=== PATIENT | female | born 1960 | race Caucasian/White ===

== ENCOUNTER 2016-11-22 04:48 | Inpatient (IN) | payer OTHER ==
[~2016-11-22] VITALS: Ht 175.3 cm; Wt 121.0 kg
[~2016-11-22 04:48] MED LIST: ACETAMINOPHEN325 M1 GT; ALDACTONE25 MG GT; ATIVAN0.5 MG GT; ATROVENT 00.5 MG/2.5 IH; BUDESONIDE0.5 MG/2 M IH; CALCIDOL8000 UNIT/ GT; CALCIUM ACETAT667 MG GT; CATHFLO ACT2 MG/2 ML INTRA-CATH; CELEXA20 MG GT; CHLORHEXIDINE473 ML PO; COREG3.125 M1 GT; DEXTROSE 50%50 ML IV; DICYCLOMINE HCL10 MG GT; DILAUDID2 MG GT; DUONEB 2.5-0.5 M3 ML AEROSOL; HECTOROL4 MCG/2 M1 IV; HEPARIN IV; HEPARIN SO1000 UNIT1 IV; HEPARIN SO5000 UNITS SC; K-SOL20 MEQ/15 GT; LANTUS 3 M100 UNITS1 SC; LASIX40 MG GT; LEVAQUIN750 MG GT; LEVAQUIN750 MG PO; LEVEMIR100 UNIT/2 SC; LEVO-T125 MCG GT; LEVO-T137 MCG GT; METOLAZONE2.5 MG GT; MYLICON,MYLANTA80 MG GT; NEPHRO-VITE,1 TABLET GT; NORVASC5 MG GT; NOVOLOG PE100 UNITS/ SC; ONDANSETRON4 MG/2 ML IV; PROCRIT10000 UNI1 SC; PROMETHAZINE HC25 M1 GT; PROTONIX IV40 MG IV; PROVENTIL,2.5 MG/3 M IH; SALINE FLUSH 5 M5 ML IV; SENNA8.8 MG/5 M GT; SILVASORB1.5 OZ TP; TYLENOL REGULA325 MG GT; TYLENOL650 MG PR; Tears Naturale II,Ar BOTH EYES; VANCOMYCIN HCL1 GM IV; ZOCOR20 MG GT
[2016-11-22 05:16] LABS: CREATININE 1.4 mg/dL (0.6-1.3); POTASSIUM 4.6 mEq/L (3.7-5.4)
[2016-11-22 05:46] LABS: CHLORIDE 99 mEq/L (99-109); POTASSIUM 4.7 mEq/L (3.7-5.4); SODIUM 135 mEq/L (136-147)
[2016-11-22 05:47] LABS: HEMATOCRIT 36.1 % (36.0-46.0); MCH 27.4 PG (29.0-34.0); MCHC 30.2 G/DL (30.0-36.0); MCV 90.7 FL (83-99); MEAN PLAT.VOLUME 10.3 uM^3 (9.5-12.4); PLATELET COUNT 265 K/uL (156-360); RBC DIS.WIDTH-CV 18.3 % (11.8-14.6); RBC DIS.WIDTH-SD 58.8 % (39-53); RED BLOOD COUNT 3.98 M/uL (3.80-5.20); WHITE BLOOD COUNT 9.9 K/uL (4.1-10.2)
[2016-11-22 05:48] LABS: GLUCOSE 252 mg/dL (70-99)
[2016-11-22 05:49] LABS: ANION GAP 11 MEQ/L (2-14)
[2016-11-22 05:52] LABS: GFR ESTIMATE (CALCULATED) 38 mL/min/
[2016-11-22 05:53] LABS: UREA NITROGEN (BUN) 52 mg/dL (9-23)
[2016-11-22] MEDS ORDERED: VITAMIN D2000 UNI1 PO (08:17)
[2016-11-22] MEDS ORDERED: LEVEMIR FL100 UNIT/1 SC (08:19)
[2016-11-22] MEDS ORDERED: WELLBUTRIN100 MG GT (08:19)
[2016-11-22] MEDS ORDERED: VITAMIN D-32000 UNI2 GT (08:19)
[2016-11-22] MEDS ORDERED: BENADRYL25 MG GT (08:20)
[2016-11-22] MEDS ORDERED: DULCOLAX5 MG GT (08:21)
[2016-11-22] MEDS ORDERED: MAGOX 400400 MG GT (08:21)
[2016-11-22] MEDS ORDERED: CALCIUM ACETAT667 MG GT (08:22)
[2016-11-22] MEDS ORDERED: NOVOLOG PE100 UNITS/ SC (08:22)
[2016-11-22] MEDS ORDERED: PERCOCET 5/31 TABLET PO ×2 (08:23→08:24)
[2016-11-22] MEDS ORDERED: LASIX20 MG GT (08:23)
[2016-11-22] MEDS ORDERED: KLONOPIN1 MG GT (08:24)
[2016-11-22] MEDS ORDERED: ZOFRAN4 MG GT (08:25)
[2016-11-22] MEDS ORDERED: COUGH SYRU100 MG/5 M GT (08:25)
[2016-11-22] MEDS ORDERED: ACETAMINOPHEN325 M1 GT (08:26)
[2016-11-22] MEDS ORDERED: TEARS NATURALE1 EACH BOTH EYES (08:27)
[2016-11-22] MEDS ORDERED: PROTONIX40 M1 GT (08:27)
[2016-11-22] MEDS ORDERED: FULL SPECTRUM0.8 MG GT (08:28)
[2016-11-22] MEDS ORDERED: COREG12.5 M1 GT (08:28)
[2016-11-22] MEDS ORDERED: ZOCOR20 MG GT (08:29)
[2016-11-22] MEDS ORDERED: DICYCLOMIN10 MG/5 ML GT (08:29)
[2016-11-22] MEDS ORDERED: GLUCERNA237 ML GT (08:30)
[2016-11-22] MEDS ORDERED: HEPARIN SO5000 UNITS SC (08:30)
[2016-11-22] MEDS ORDERED: NYSTOP60 GM TP (08:31)
[2016-11-22] MEDS ORDERED: HYDROPHOR228 GM TP (08:31)
[2016-11-22] MEDS ORDERED: PULMICORT0.5 MG/21 IH (08:32)
[2016-11-22] MEDS ORDERED: JUVEN PACKET1 EACH GT (08:33)
[2016-11-22] MEDS ORDERED: DUONEB 2.5-0.5 M3 ML AEROSOL (08:34)
[2016-11-22] MEDS ORDERED: PERIDEX1 ML MM (08:35)
[2016-11-22 11:00] VITALS: BP 116/76
[2016-11-22 12:00] VITALS: BP 97/57
[2016-11-22 12:22] VITALS: BP 116/76
[2016-11-22 12:24] LABS: METH RESISTANT S AUREUS PCR POSITIVE (NEGATIVE); PROBE CHECK PASS
[2016-11-22 13:30] LABS: POINT-OF-CARE METER ID UU13113731
[2016-11-22 14:47] LABS: ADD MIUA? YES; BILIRUBIN NEGATIVE; BLOOD MODERATE; COLOR YELLOW ((YELLOW)); GLUCOSE (STRIP) NEGATIVE; KETONES NEGATIVE; LEUKOCYTES MODERATE; NITRITE NEGATIVE; PROTEIN (STRIP) 30; SPECIFIC GRAVITY 1.027 (1.000-1.030); UROBILINOGEN 0.2 MG/DL (0.2-1.0)
[2016-11-22 15:07] LABS: EPITHELIAL CELLS 1+; MUCUS 2+
[2016-11-22 15:08] LABS: BACTERIA 1+; CASTS NONE SEEN /LPF; CRYSTALS NONE SEEN
[2016-11-22 16:00] VITALS: BP 136/53
[2016-11-22 16:12] LABS: POINT-OF-CARE METER ID UU13113731
[2016-11-22 16:35] LABS: CANDIDA DNA PROBE NEGATIVE; GARDNERELLA DNA PROBE NEGATIVE; INTERNAL CONTROL VALID? YES
[2016-11-22 19:12] LABS: HEMATOCRIT 35.1 % (36.0-46.0); MCV 90.5 FL (83-99)
[2016-11-22 20:00] VITALS: BP 95/48
[2016-11-22 22:00] VITALS: BP 96/52
[2016-11-22 22:11] LABS: POINT-OF-CARE METER ID UU14174217
[2016-11-22 22:47] LABS: INTERNAL CONTROL VALID? YES
[2016-11-22 23:15] LABS: C DIFF TOXIN POSITIVE (NEGATIVE)
[2016-11-22 23:16] LABS: PROBE CHECK PASS
[2016-11-23] VITALS (9 sets, daily range): BP systolic 110–136; BP diastolic 46–60
[2016-11-23 00:22] LABS: MAGNESIUM 1.7 mg/dL (1.3-2.7)
[2016-11-23 05:32] LABS: MCH 26.9 PG (29.0-34.0); MCHC 29.4 G/DL (30.0-36.0); MCV 91.4 FL (83-99); MEAN PLAT.VOLUME 10.3 uM^3 (9.5-12.4); PLATELET COUNT 217 K/uL (156-360); RBC DIS.WIDTH-CV 18.4 % (11.8-14.6); RBC DIS.WIDTH-SD 60.4 % (39-53); RED BLOOD COUNT 3.72 M/uL (3.80-5.20); WHITE BLOOD COUNT 9.5 K/uL (4.1-10.2)
[2016-11-23 05:57] LABS: ANION GAP 5 MEQ/L (2-14); CHLORIDE 103 MEQ/L (99-109); GFR ESTIMATE (CALCULATED) 54 mL/min/; SAMPLE HEMOLYSIS CHECK 0; SAMPLE ICTERIC CHECK 0; SAMPLE LIPEMIA CHECK 0; SODIUM 139 MEQ/L (136-147)
[2016-11-23 06:13] LABS: GLUCOSE 79 mg/dL (70-99); UREA NITROGEN (BUN) 23 mg/dL (9-23)
[2016-11-23 06:15] LABS: EOSINOPHIL (%) 4.5 % (0-5); EOSINOPHIL COUNT 0.4 K/uL (0-0.3); IMMATURE GRANULOCYTE (%) 0.4 % (0.0-0.7); LYMPHOCYTE COUNT 1.9 K/uL (1.0-2.8); MONOCYTE (%) 4.5 % (3-12); MONOCYTE COUNT 0.4 K/uL (0-0.8); NEUTROPHIL (%) 70.8 % (45-76); NEUTROPHIL COUNT 6.7 K/uL (1.8-6.4)
[2016-11-23 10:17] LABS: POINT-OF-CARE METER ID UU14174217
[2016-11-23 10:50] LABS: HBSG INDEX 0.13
[2016-11-23 12:10] LABS: POINT-OF-CARE METER ID UU13113803
[2016-11-23 17:46] LABS: POINT-OF-CARE METER ID UU14174217; POINT-OF-CARE USER ID 606021424
[2016-11-24] VITALS (12 sets, daily range): BP systolic 103–130; BP diastolic 46–69
[2016-11-24 05:59] LABS: HEMATOCRIT 32.3 % (36.0-46.0); MCH 26.7 PG (29.0-34.0); MCHC 29.1 G/DL (30.0-36.0); MCV 91.8 FL (83-99); MEAN PLAT.VOLUME 10.3 uM^3 (9.5-12.4); PLATELET COUNT 204 K/uL (156-360); RBC DIS.WIDTH-CV 18.6 % (11.8-14.6); RBC DIS.WIDTH-SD 61.5 % (39-53); RED BLOOD COUNT 3.52 M/uL (3.80-5.20); WHITE BLOOD COUNT 8.8 K/uL (4.1-10.2)
[2016-11-24 06:17] LABS: EOSINOPHIL (%) 4.9 % (0-5); EOSINOPHIL COUNT 0.4 K/uL (0-0.3); IMMATURE GRANULOCYTE (%) 0.3 % (0.0-0.7); MONOCYTE (%) 6.7 % (3-12); MONOCYTE COUNT 0.6 K/uL (0-0.8); NEUTROPHIL COUNT 5.7 K/uL (1.8-6.4)
[2016-11-24 06:23] LABS: ANION GAP 8 MEQ/L (2-14); CHLORIDE 103 MEQ/L (99-109); GFR ESTIMATE (CALCULATED) 49 mL/min/; GLUCOSE 55 mg/dL (70-99); POTASSIUM 3.8 MEQ/L (3.7-5.4); SAMPLE HEMOLYSIS CHECK 0; SAMPLE ICTERIC CHECK 0; SAMPLE LIPEMIA CHECK 0; SODIUM 138 MEQ/L (136-147); UREA NITROGEN (BUN) 27 mg/dL (9-23)
[2016-11-24 08:38] LABS: POINT-OF-CARE METER ID UU13113731
[2016-11-24 12:33] LABS: POINT-OF-CARE METER ID UU13113731
[2016-11-24 15:26] LABS: MAGNESIUM 1.7 mg/dl (1.3-2.7)
[2016-11-24 18:44] LABS: POINT-OF-CARE METER ID UU13113731
[2016-11-24 18:52] LABS: ADD MIUA? YES; BILIRUBIN NEGATIVE; BLOOD NEGATIVE; COLOR YELLOW ((YELLOW)); GLUCOSE (STRIP) NEGATIVE; KETONES NEGATIVE; LEUKOCYTES NEGATIVE; NITRITE NEGATIVE; PROTEIN (STRIP) NEGATIVE; SPECIFIC GRAVITY 1.023 (1.000-1.030); UROBILINOGEN 0.2 MG/DL (0.2-1.0)
[2016-11-24 19:37] LABS: RED BLOOD CELLS 0-5 /HPF (0-5)
[2016-11-24 19:38] LABS: BACTERIA 1+; CASTS NONE SEEN /LPF; CRYSTALS NONE SEEN; EPITHELIAL CELLS 4+; MUCUS NONE SEEN; UCUL ADDED? NO; WHITE BLOOD CELLS 0-5 /HPF (0-5)
[2016-11-24 23:13] LABS: POINT-OF-CARE METER ID UU13113803
[2016-11-25] VITALS (8 sets, daily range): BP systolic 99–154; BP diastolic 52–71
[2016-11-25 06:56] LABS: ANION GAP 8 MEQ/L (2-14); CHLORIDE 102 MEQ/L (99-109); GFR ESTIMATE (CALCULATED) 45 mL/min/; MAGNESIUM 1.6 mg/dl (1.3-2.7); POTASSIUM 4.2 MEQ/L (3.7-5.4); SAMPLE HEMOLYSIS CHECK 0; SAMPLE ICTERIC CHECK 0; SAMPLE LIPEMIA CHECK 0; SODIUM 136 MEQ/L (136-147); UREA NITROGEN (BUN) 35 mg/dL (9-23)
[2016-11-25 06:59] LABS: GLUCOSE 111 mg/dL (70-99)
[2016-11-25 09:32] LABS: POINT-OF-CARE METER ID UU13113748
[2016-11-25] MEDS ORDERED: BACTRIM,SEPTRA S1 ML GT (09:54)
[2016-11-25] MEDS ORDERED: VANCOMYCIN125 MG/2.5 PO (09:56)
[2016-11-25 11:41] LABS: POINT-OF-CARE METER ID UU13113748; POINT-OF-CARE USER ID 606021424
[2016-11-25 17:50] LABS: POINT-OF-CARE METER ID UU14162636
[2016-11-25 22:40] LABS: POINT-OF-CARE METER ID UU14162636
[2016-11-26] VITALS: BP 140/52
[2016-11-26 04:00] VITALS: BP 159/66
[2016-11-26 06:55] LABS: ANION GAP 11 MEQ/L (2-14); CHLORIDE 104 MEQ/L (99-109); GFR ESTIMATE (CALCULATED) 45 mL/min/; GLUCOSE 162 mg/dL (70-99); POTASSIUM 4.5 MEQ/L (3.7-5.4); SAMPLE HEMOLYSIS CHECK 0; SAMPLE ICTERIC CHECK 0; SAMPLE LIPEMIA CHECK 0; SODIUM 138 MEQ/L (136-147); UREA NITROGEN (BUN) 37 mg/dL (9-23)
[2016-11-26 08:30] VITALS: BP 127/60
[2016-11-26 12:00] VITALS: BP 80/56
[2016-11-26 16:30] VITALS: BP 142/69
[2016-11-26 20:00] VITALS: BP 169/68
[2016-11-27] VITALS (7 sets, daily range): BP systolic 0–136; BP diastolic 0–64
[2016-11-27 06:19] LABS: HEMATOCRIT 32.3 % (36.0-46.0); MCH 27.5 PG (29.0-34.0); MCV 91.5 FL (83-99); RBC DIS.WIDTH-CV 17.6 % (11.8-14.6); RBC DIS.WIDTH-SD 59.3 % (39-53); RED BLOOD COUNT 3.53 M/uL (3.80-5.20); WHITE BLOOD COUNT 9.3 K/uL (4.1-10.2)
[2016-11-27 06:37] LABS: BASOPHIL COUNT 0.1 K/uL (0-0.1); EOSINOPHIL (%) 4.4 % (0-5); EOSINOPHIL COUNT 0.4 K/uL (0-0.3); IMMATURE GRANULOCYTE (%) 0.5 % (0.0-0.7); IMMATURE GRANULOCYTE COUNT 0.1 K/uL; LYMPHOCYTE COUNT 2.3 K/uL (1.0-2.8); MEAN PLAT.VOLUME 10.5 uM^3 (9.5-12.4); MONOCYTE (%) 6.7 % (3-12); MONOCYTE COUNT 0.6 K/uL (0-0.8); NEUTROPHIL (%) 62.6 % (45-76); NEUTROPHIL COUNT 5.8 K/uL (1.8-6.4)
[2016-11-27 06:42] LABS: ANION GAP 9 MEQ/L (2-14); CHLORIDE 105 MEQ/L (99-109); GFR ESTIMATE (CALCULATED) 45 mL/min/; GLUCOSE 128 mg/dL (70-99); POTASSIUM 4.2 MEQ/L (3.7-5.4); SAMPLE HEMOLYSIS CHECK 0; SAMPLE ICTERIC CHECK 0; SAMPLE LIPEMIA CHECK 0; SODIUM 140 MEQ/L (136-147); UREA NITROGEN (BUN) 41 mg/dL (9-23)
[2016-11-27 06:43] LABS: PLATELET COUNT 278 K/uL (156-360)
[2016-11-27 08:13] LABS: ALKALINE PHOSPHATASE 133 IU/L (3-129); DIRECT BILIRUBIN 0.1 mg/dL (0.0-0.3); MAGNESIUM 1.7 mg/dl (1.3-2.7); TOTAL BILIRUBIN 0.4 MG/DL (0.0-1.0)
[2016-11-27] MEDS ORDERED: BUMETANIDE1 MG PO (12:26)
[2016-11-27 21:37] LABS: POINT-OF-CARE METER ID UU14174217; POINT-OF-CARE USER ID PHATLC
[2016-11-27 23:37] LABS: UR CREATININE CONCENTRATION 71.3 MG/DL
[2016-11-28] VITALS (7 sets, daily range): BP systolic 115–127; BP diastolic 56–82
[2016-11-28 06:40] LABS: ANION GAP 7 MEQ/L (2-14); CHLORIDE 104 MEQ/L (99-109); GFR ESTIMATE (CALCULATED) 45 mL/min/; GLUCOSE 169 mg/dL (70-99); POTASSIUM 4.3 MEQ/L (3.7-5.4); SAMPLE HEMOLYSIS CHECK 0; SAMPLE ICTERIC CHECK 0; SAMPLE LIPEMIA CHECK 0; SODIUM 138 MEQ/L (136-147); UREA NITROGEN (BUN) 44 mg/dL (9-23)
[2016-11-28 12:00] LABS: POINT-OF-CARE METER ID UU14162636
[2016-11-28 17:51] LABS: POINT-OF-CARE METER ID UU14162636
[2016-11-28 23:13] LABS: POINT-OF-CARE METER ID UU13113748; POINT-OF-CARE USER ID PHATLC
[2016-11-29] VITALS (7 sets, daily range): BP systolic 91–147; BP diastolic 51–72
[2016-11-29 05:44] LABS: POINT-OF-CARE METER ID UU14162636; POINT-OF-CARE USER ID PHATLC
[2016-11-29 08:32] LABS: POINT-OF-CARE METER ID UU13113748
[2016-11-29 11:40] LABS: POINT-OF-CARE METER ID UU13113748
[2016-11-29 16:58] LABS: POINT-OF-CARE METER ID UU13113748
[2016-11-29 22:54] LABS: POINT-OF-CARE METER ID UU13113748; POINT-OF-CARE USER ID PHATLC
[2016-11-30] VITALS: BP 122/82
[2016-11-30 04:00] VITALS: BP 175/71
[2016-11-30 05:50] LABS: HEMATOCRIT 32.9 % (36.0-46.0); MCH 27.8 PG (29.0-34.0); MCHC 30.1 G/DL (30.0-36.0); MCV 92.4 FL (83-99); RBC DIS.WIDTH-CV 17.2 % (11.8-14.6); RBC DIS.WIDTH-SD 58.1 % (39-53); RED BLOOD COUNT 3.56 M/uL (3.80-5.20); WHITE BLOOD COUNT 9.3 K/uL (4.1-10.2)
[2016-11-30 06:41] LABS: ALKALINE PHOSPHATASE 129 IU/L (3-129); ANION GAP 8 MEQ/L (2-14); CHLORIDE 100 MEQ/L (99-109); GFR ESTIMATE (CALCULATED) 45 mL/min/; GLUCOSE 210 mg/dL (70-99); POTASSIUM 4.7 MEQ/L (3.7-5.4); SAMPLE HEMOLYSIS CHECK 0; SAMPLE ICTERIC CHECK 0; SAMPLE LIPEMIA CHECK 0; SODIUM 137 MEQ/L (136-147); TOTAL BILIRUBIN 0.4 MG/DL (0.0-1.0); UREA NITROGEN (BUN) 49 mg/dL (9-23)
[2016-11-30 06:45] LABS: BASOPHIL COUNT 0.1 K/uL (0-0.1); EOSINOPHIL (%) 4.1 % (0-5); EOSINOPHIL COUNT 0.4 K/uL (0-0.3); IMMATURE GRANULOCYTE (%) 0.5 % (0.0-0.7); IMMATURE GRANULOCYTE COUNT 0.1 K/uL; LYMPHOCYTE COUNT 2.5 K/uL (1.0-2.8); MEAN PLAT.VOLUME 10.2 uM^3 (9.5-12.4); MONOCYTE (%) 7.8 % (3-12); MONOCYTE COUNT 0.7 K/uL (0-0.8); NEUTROPHIL (%) 60.8 % (45-76); NEUTROPHIL COUNT 5.7 K/uL (1.8-6.4); PLATELET COUNT 391 K/uL (156-360)
[2016-11-30 08:00] VITALS: BP 126/68
[2016-11-30 09:05] LABS: POINT-OF-CARE METER ID UU14174217
[2016-11-30 12:00] VITALS: BP 118/36
[2016-11-30 12:00] LABS: POINT-OF-CARE METER ID UU13113803
[2016-11-30 16:00] VITALS: BP 118/61
[2016-11-30 18:10] LABS: POINT-OF-CARE METER ID UU14174217
[2016-11-30 20:00] VITALS: BP 132/56
[2016-11-30 21:29] LABS: POINT-OF-CARE METER ID UU14174217
[2016-12-01] VITALS (10 sets, daily range): BP systolic 89–149; BP diastolic 46–75
[2016-12-01 09:03] LABS: POINT-OF-CARE METER ID UU13113731
[2016-12-01 12:45] LABS: HEMATOCRIT 32.7 % (36.0-46.0); MCH 27.8 PG (29.0-34.0); MCHC 30.3 G/DL (30.0-36.0); MCV 91.9 FL (83-99); MEAN PLAT.VOLUME 10.5 uM^3 (9.5-12.4); PLATELET COUNT 357 K/uL (156-360); RBC DIS.WIDTH-CV 17.3 % (11.8-14.6); RBC DIS.WIDTH-SD 58.3 % (39-53); RED BLOOD COUNT 3.56 M/uL (3.80-5.20); WHITE BLOOD COUNT 7.4 K/uL (4.1-10.2)
[2016-12-01 13:21] LABS: POINT-OF-CARE METER ID UU13113731
[2016-12-01 13:47] LABS: ALKALINE PHOSPHATASE 143 IU/L (3-129); ANION GAP 10 MEQ/L (2-14); CHLORIDE 102 MEQ/L (99-109); GFR ESTIMATE (CALCULATED) 45 mL/min/; GLUCOSE 232 mg/dL (70-99); POTASSIUM 5.3 MEQ/L (3.7-5.4); SAMPLE HEMOLYSIS CHECK 0; SAMPLE ICTERIC CHECK 0; SAMPLE LIPEMIA CHECK 0; SODIUM 138 MEQ/L (136-147); UREA NITROGEN (BUN) 48 mg/dL (9-23)
[2016-12-01 13:50] LABS: TOTAL BILIRUBIN 0.3 MG/DL (0.0-1.0)
[2016-12-01 17:18] LABS: POINT-OF-CARE METER ID UU14162636
[2016-12-01 20:26] LABS: ADD MIUA? YES; BILIRUBIN NEGATIVE; BLOOD SMALL; COLOR YELLOW ((YELLOW)); GLUCOSE (STRIP) NEGATIVE; KETONES NEGATIVE; LEUKOCYTES LARGE; NITRITE NEGATIVE; PH, URINE 5.5 (5-8); PROTEIN (STRIP) NEGATIVE; SPECIFIC GRAVITY 1.017 (1.000-1.030); UROBILINOGEN 0.2 MG/DL (0.2-1.0)
[2016-12-01 20:53] LABS: EPITHELIAL CELLS RARE /HPF; RED BLOOD CELLS 0-5 /HPF (0-5); WHITE BLOOD CELLS TNTC /HPF (0-5)
[2016-12-01 20:54] LABS: BACTERIA 4+ /HPF; CASTS NONE SEEN /LPF; CRYSTALS NONE SEEN; MUCUS RARE /LPF; UCUL ADDED? YES
[2016-12-01 23:05] LABS: POINT-OF-CARE METER ID UU13113731
[2016-12-02] VITALS (8 sets, daily range): BP systolic 99–148; BP diastolic 48–81
[2016-12-02 05:23] LABS: HEMATOCRIT 30.6 % (36.0-46.0); MCH 27.6 PG (29.0-34.0); MCHC 30.4 G/DL (30.0-36.0); MCV 90.8 FL (83-99); MEAN PLAT.VOLUME 9.9 uM^3 (9.5-12.4); PLATELET COUNT 353 K/uL (156-360); RBC DIS.WIDTH-CV 17.5 % (11.8-14.6); RBC DIS.WIDTH-SD 58.1 % (39-53); RED BLOOD COUNT 3.37 M/uL (3.80-5.20); WHITE BLOOD COUNT 6.1 K/uL (4.1-10.2)
[2016-12-02 05:39] LABS: EOSINOPHIL (%) 3.5 % (0-5); EOSINOPHIL COUNT 0.2 K/uL (0-0.3); IMMATURE GRANULOCYTE (%) 0.5 % (0.0-0.7); LYMPHOCYTE COUNT 2.5 K/uL (1.0-2.8); MONOCYTE (%) 6.9 % (3-12); MONOCYTE COUNT 0.4 K/uL (0-0.8); NEUTROPHIL (%) 46.6 % (45-76); NEUTROPHIL COUNT 2.8 K/uL (1.8-6.4)
[2016-12-02 05:53] LABS: ANION GAP 8 MEQ/L (2-14); CHLORIDE 100 MEQ/L (99-109); GFR ESTIMATE (CALCULATED) 41 mL/min/; GLUCOSE 191 mg/dL (70-99); POTASSIUM 4.3 MEQ/L (3.7-5.4); SAMPLE HEMOLYSIS CHECK 0; SAMPLE ICTERIC CHECK 0; SAMPLE LIPEMIA CHECK 0; SODIUM 136 MEQ/L (136-147); UREA NITROGEN (BUN) 49 mg/dL (9-23)
[2016-12-02 09:34] LABS: POINT-OF-CARE METER ID UU13113731
[2016-12-02 12:14] LABS: POINT-OF-CARE METER ID UU13113731
[2016-12-02 18:55] LABS: POINT-OF-CARE METER ID UU13113731
[2016-12-03] VITALS (7 sets, daily range): BP systolic 109–153; BP diastolic 54–77
[2016-12-03 00:09] LABS: POINT-OF-CARE METER ID UU13113731
[2016-12-03 08:53] LABS: HEMATOCRIT 31.8 % (36.0-46.0); MCH 27.8 PG (29.0-34.0); MCHC 30.2 G/DL (30.0-36.0); MCV 92.2 FL (83-99); MEAN PLAT.VOLUME 10.1 uM^3 (9.5-12.4); PLATELET COUNT 387 K/uL (156-360); RBC DIS.WIDTH-CV 17.2 % (11.8-14.6); RBC DIS.WIDTH-SD 57.5 % (39-53); RED BLOOD COUNT 3.45 M/uL (3.80-5.20); WHITE BLOOD COUNT 7.5 K/uL (4.1-10.2)
[2016-12-03 09:16] LABS: ALKALINE PHOSPHATASE 137 IU/L (3-129); ANION GAP 5 MEQ/L (2-14); CHLORIDE 101 MEQ/L (99-109); GFR ESTIMATE (CALCULATED) 45 mL/min/; GLUCOSE 194 mg/dL (70-99); POTASSIUM 4.5 MEQ/L (3.7-5.4); SAMPLE HEMOLYSIS CHECK 0; SAMPLE ICTERIC CHECK 0; SAMPLE LIPEMIA CHECK 0; SODIUM 137 MEQ/L (136-147); TOTAL BILIRUBIN 0.3 MG/DL (0.0-1.0); UREA NITROGEN (BUN) 55 mg/dL (9-23)
[2016-12-03 12:53] LABS: POINT-OF-CARE METER ID UU13113731
[2016-12-03 18:12] LABS: POINT-OF-CARE METER ID UU14162636
[2016-12-04] VITALS (11 sets, daily range): BP systolic 102–168; BP diastolic 45–81
[2016-12-04 00:03] LABS: POINT-OF-CARE METER ID UU14162636
[2016-12-04 07:42] LABS: POINT-OF-CARE METER ID UU13113748
[2016-12-04 13:00] LABS: POINT-OF-CARE METER ID UU13113748
[2016-12-04 16:22] LABS: POINT-OF-CARE METER ID UU13113748
[2016-12-04 22:30] LABS: POINT-OF-CARE METER ID UU13113731
[2016-12-05] VITALS: BP 116/62
[2016-12-05 04:00] VITALS: BP 131/66
[2016-12-05 05:55] LABS: HEMATOCRIT 31.8 % (36.0-46.0); MCH 27.6 PG (29.0-34.0); MCHC 30.2 G/DL (30.0-36.0); MCV 91.4 FL (83-99); MEAN PLAT.VOLUME 9.8 uM^3 (9.5-12.4); PLATELET COUNT 375 K/uL (156-360); RBC DIS.WIDTH-CV 17.2 % (11.8-14.6); RBC DIS.WIDTH-SD 57.3 % (39-53); RED BLOOD COUNT 3.48 M/uL (3.80-5.20); WHITE BLOOD COUNT 8.1 K/uL (4.1-10.2)
[2016-12-05 06:03] LABS: BASOPHIL COUNT 0.1 K/uL (0-0.1); EOSINOPHIL (%) 3.7 % (0-5); EOSINOPHIL COUNT 0.3 K/uL (0-0.3); IMMATURE GRANULOCYTE (%) 0.6 % (0.0-0.7); IMMATURE GRANULOCYTE COUNT 0.1 K/uL; LYMPHOCYTE COUNT 2.7 K/uL (1.0-2.8); MONOCYTE (%) 5.7 % (3-12); MONOCYTE COUNT 0.5 K/uL (0-0.8); NEUTROPHIL (%) 56.1 % (45-76); NEUTROPHIL COUNT 4.5 K/uL (1.8-6.4)
[2016-12-05 06:18] LABS: ANION GAP 8 MEQ/L (2-14); CHLORIDE 99 MEQ/L (99-109); GFR ESTIMATE (CALCULATED) 49 mL/min/; GLUCOSE 150 mg/dL (70-99); POTASSIUM 4.2 MEQ/L (3.7-5.4); SAMPLE HEMOLYSIS CHECK 0; SAMPLE ICTERIC CHECK 0; SAMPLE LIPEMIA CHECK 0; SODIUM 140 MEQ/L (136-147); UREA NITROGEN (BUN) 49 mg/dL (9-23)
[2016-12-05 08:30] VITALS: BP 140/63
[2016-12-05 12:00] VITALS: BP 129/61
[2016-12-05] MEDS ORDERED: LEVEMIR FL100 UNIT/1 SC (12:14)
[2016-12-05] MEDS ORDERED: WELLBUTRIN100 MG GT (12:14)
[2016-12-05] MEDS ORDERED: DUONEB 2.5-0.5 M3 ML AEROSOL (12:14)
[2016-12-05] MEDS ORDERED: PULMICORT0.5 MG/21 IH (12:14)
[2016-12-05] MEDS ORDERED: LEVO-T137 MCG GT (12:14)
[2016-12-05] MEDS ORDERED: CALCIUM ACETAT667 MG GT (12:14)
[2016-12-05] MEDS ORDERED: FULL SPECTRUM0.8 MG GT (12:14)
[2016-12-05] MEDS ORDERED: ZOCOR20 MG GT (12:14)
[2016-12-05] MEDS ORDERED: GLUCERNA237 ML GT (12:14)
[2016-12-05] MEDS ORDERED: VITAMIN D-32000 UNI2 GT (12:14)
[2016-12-05] MEDS ORDERED: COREG12.5 M1 GT (12:14)
[2016-12-05] MEDS ORDERED: KLONOPIN1 MG GT (12:14)
[2016-12-05] MEDS ORDERED: VANCOCIN HCL125 MG PO (12:14)
[2016-12-05] MEDS ORDERED: NOVOLOG PE100 UNITS/ SC (12:14)
[2016-12-05 16:00] VITALS: BP 0/0; BP 110/62
== END 2016-12-05 14:13 | DRG 371 ==
LOC: EME → EDBD 04:48 → 4WEST 08:01 → EDOF 08:01 → 4WEST 10:51
PROVIDERS: Emergency Medicine; Hospitalist; Internal Medicine; Internal Medicine Nephrology; Obstetrics & Gynecology
PROC: 5A1955Z Respiratory Ventilation, Greater than 96 Consecutive Hours (ICD-10-PCS; principal; 2016-11-22)
PROC: 5A1D00Z (ICD-10-PCS; 2016-11-22)
DX: A04.7 Enterocolitis due to Clostridium difficile (principal); K92.2 Gastrointestinal hemorrhage, unspecified; J96.11 Chronic respiratory failure with hypoxia; Z99.11 Dependence on respirator [ventilator] status; E87.1 Hypo-osmolality and hyponatremia; I13.2 Hypertensive heart and chronic kidney disease with heart failure and with stage 5 chronic kidney disease, or end stage renal disease; I50.9 Heart failure, unspecified; E11.65 Type 2 diabetes mellitus with hyperglycemia; E11.22 Type 2 diabetes mellitus with diabetic chronic kidney disease; N18.6 End stage renal disease; J98.11 Atelectasis; N39.0 Urinary tract infection, site not specified; L22 Diaper dermatitis; L30.4 Erythema intertrigo; R00.0 Tachycardia, unspecified; S42.021A Displaced fracture of shaft of right clavicle, initial encounter for closed fracture; X58.XXXA Exposure to other specified factors, initial encounter; D63.1 Anemia in chronic kidney disease; I34.0 Nonrheumatic mitral (valve) insufficiency; E03.9 Hypothyroidism, unspecified; E78.5 Hyperlipidemia, unspecified; F32.9 Major depressive disorder, single episode, unspecified; F41.9 Anxiety disorder, unspecified; B96.20 Unspecified Escherichia coli [E. coli] as the cause of diseases classified elsewhere; Z16.24 Resistance to multiple antibiotics; N89.8 Other specified noninflammatory disorders of vagina; E66.01 Morbid (severe) obesity due to excess calories; Z93.0 Tracheostomy status; Z93.1 Gastrostomy status; Z99.2 Dependence on renal dialysis; Z68.41 Body mass index [BMI] 40.0-44.9, adult; Z79.4 Long term (current) use of insulin
CPT/HCPCS: 71010; 74177; 80047; 80048; 80053; 80076; 81003; 81050; 82272; 82570; 82575; 82948; 83605; 83735; 84100; 84156; 85014; 85018; 85025; 85027; 86707 90; 86850; 86900; 86901; 87040; 87070; 87075; 87077; 87081; 87086; 87147; 87186; 87205; 87340; 87480; 87493; 87506; 87510; 87641; 87660; 93005; 94002; 94003; 94640; 94640 76; 94760; 99202; 99281; 99285; C9113; J0744; J1644; J1815; J2270; J2405; J2543; J7030; S0030

== ENCOUNTER → 2017-01-08 | Outpatient (CLI) | payer OTHER ==
[~2017-01-08] MED LIST changes: +BACTRIM,SEPTRA S1 ML GT; +BENADRYL25 MG GT; +BUMETANIDE1 MG PO; +BUMEX1 MG PO; +CALCIUM ACETAT667 MG PO; +COREG12.5 M1 GT; +COUGH SYRU100 MG/5 M GT; +DICYCLOMIN10 MG/5 ML GT; +DOC-Q-LAX TABL1 EACH PO; +DULCOLAX5 MG GT; +FLORASTOR250 MG PO; +FULL SPECTRUM0.8 MG GT; +GLUCERNA237 ML GT; +HYDROPHOR228 GM TP; +JUVEN PACKET1 EACH GT; +KLONOPIN1 MG GT; +LASIX20 MG GT; +LEVEMIR FL100 UNIT/1 SC; +LIDODERM 5% P1 PATCH TD; +MAGOX 400400 MG GT; +NYSTOP60 GM TP; +PERCOCET 5/31 TABLET PO; +PERIDEX1 ML MM; +PROTONIX40 M1 GT; +PULMICORT0.5 MG/21 IH; +SENNA8.6 MG PO; +TEARS NATURALE1 EACH BOTH EYES; +VANCOCIN HCL125 MG PO; +VANCOMYCIN125 MG/2.5 PO; +VITAMIN D-32000 UNI2 GT; +VITAMIN D2000 UNI1 PO; +WELLBUTRIN100 MG GT; +ZOFRAN4 MG GT
== END | disposition designated cancer center or children's hospital (05) ==
LOC: RAD 09:00
DX: J90 Pleural effusion, not elsewhere classified (principal); J81.1 Chronic pulmonary edema; J96.91 Respiratory failure, unspecified with hypoxia
CPT/HCPCS: 71250; 78580; A9540

== ENCOUNTER → 2017-01-15 | Outpatient (CLI) | payer OTHER | END | disposition designated cancer center or children's hospital (05) | LOC: EDSTATUS 14:00 → RAD 14:00 | PROC: 0W9B3ZZ Drainage of Left Pleural Cavity, Percutaneous Approach (ICD-10-PCS; principal; 2017-01-15) | DX: J90 Pleural effusion, not elsewhere classified (principal) | CPT/HCPCS: 94799 ==

== ENCOUNTER 2017-02-21 20:45 | Inpatient (IN) | payer OTHER ==
[~2017-02-21] VITALS: Ht 167.6 cm; Wt 112.7 kg
[2017-02-21 21:57] LABS: HEMATOCRIT 31.9 % (36.0-46.0); MCH 29.1 PG (29.0-34.0); MCHC 31.7 G/DL (30.0-36.0); MCV 91.9 FL (83-99); MEAN PLAT.VOLUME 10.7 uM^3 (9.5-12.4); PLATELET COUNT 220 K/uL (156-360); RBC DIS.WIDTH-CV 15.9 % (11.8-14.6); RBC DIS.WIDTH-SD 53.1 % (39-53); RED BLOOD COUNT 3.47 M/uL (3.80-5.20); WHITE BLOOD COUNT 7.9 K/uL (4.1-10.2)
[2017-02-21 22:10] LABS: CHLORIDE 95 mEq/L (99-109); POTASSIUM 4.7 mEq/L (3.7-5.4); SODIUM 136 mEq/L (136-147)
[2017-02-21 22:12] LABS: GLUCOSE 279 mg/dL (70-99)
[2017-02-21 22:13] LABS: ANION GAP 16 MEQ/L (2-14)
[2017-02-21 22:16] LABS: ALKALINE PHOSPHATASE 164 IU/L (3-129); GFR ESTIMATE (CALCULATED) 35 mL/min/
[2017-02-21 22:17] LABS: UREA NITROGEN (BUN) 36 mg/dL (9-23)
[2017-02-21 22:19] LABS: LIPASE 16 U/L (1.0-51.0)
[2017-02-21 22:21] LABS: TROP-I INTERPRETATION NEGATIVE; TROPONIN-I < 0.01 ng/mL (0.0-0.30)
[2017-02-21 22:28] LABS: BASE EXCESS 6.3 mEq/L (-3 to +3); BICARBONATE 30.6 mEq/L (22-26); CARBOXY HGB 2.2 % (0-5); METHEMOGLOBIN 1.9 % (0-1.5); PCO2 42 mm Hg (35-45); PO2 99 mm Hg (80-100); pH 7.47 (7.35-7.45)
[2017-02-21 22:29] LABS: COMMENTS - BLOOD GASES C+A+; DEVICE 840 VENT; FI02 60 %; INSPIRATION TIME 0.8 seconds; MECHANICAL RATE 12 resp/min; MODE AC VC+; PEEP 5 CM/H20; SITE LR; TIDAL VOLUME 500 ML; TOTAL RESP RATE 25 resp/min
[2017-02-22] VITALS (12 sets, daily range): BP systolic 95–152; BP diastolic 28–68
[2017-02-22] MEDS ORDERED: NOVOLOG 10100 UNITS/ SC (01:34)
[2017-02-22] MEDS ORDERED: ACETAMINOPHEN325 M1 PO (01:36)
[2017-02-22] MEDS ORDERED: TEARS NATURALE1 EACH BOTH EYES (01:37)
[2017-02-22] MEDS ORDERED: PROTONIX40 MG PO (01:38)
[2017-02-22] MEDS ORDERED: VENLAFAXINE H37.5 MG PO (01:40)
[2017-02-22] MEDS ORDERED: VENLAFAXINE HCL75 MG PO (01:41)
[2017-02-22] MEDS ORDERED: BENADRYL25 MG PO (01:42)
[2017-02-22] MEDS ORDERED: OXYCONTIN10 MG PO (01:43)
[2017-02-22] MEDS ORDERED: PERCOCET 5/31 TABLET PO (01:44)
[2017-02-22] MEDS ORDERED: QUETIAPINE FUMA50 MG PO (01:45)
[2017-02-22] MEDS ORDERED: FERROUS SULFAT325 MG PO (01:46)
[2017-02-22] MEDS ORDERED: SIMETHICONE80 MG PO (01:47)
[2017-02-22] MEDS ORDERED: BUMEX1 MG PO (01:48)
[2017-02-22] MEDS ORDERED: SENNA8.6 MG PO (01:49)
[2017-02-22] MEDS ORDERED: MIRALAX17 GM PO (01:51)
[2017-02-22] MEDS ORDERED: MOVE IT ALONG100 MG PO (01:52)
[2017-02-22] MEDS ORDERED: BISAC-EVAC10 MG PR (01:52)
[2017-02-22] MEDS ORDERED: FLORASTOR250 MG PO (02:01)
[2017-02-22] MEDS ORDERED: MUCINEX1200 MG PO (02:02)
[2017-02-22] MEDS ORDERED: MAGNESIUM400 M1 PO (02:02)
[2017-02-22] MEDS ORDERED: CLONAZEPAM0.5 MG PO (02:03)
[2017-02-22] MEDS ORDERED: LEVO-T137 MCG PO (02:03)
[2017-02-22] MEDS ORDERED: CALCIUM ACETAT667 MG PO (02:03)
[2017-02-22] MEDS ORDERED: CLONAZEPAM1 MG PO (02:04)
[2017-02-22] MEDS ORDERED: LEVEMIR100 UNIT/2 SC (02:04)
[2017-02-22] MEDS ORDERED: CARVEDILOL12.5 MG PO (02:05)
[2017-02-22] MEDS ORDERED: SIMVASTATIN10 MG PO (02:05)
[2017-02-22] MEDS ORDERED: VITAMIN D2000 UNIT PO (02:05)
[2017-02-22] MEDS ORDERED: SIMVASTATIN20 MG PO (02:06)
[2017-02-22 06:53] LABS: METH RESISTANT S AUREUS PCR POSITIVE (NEGATIVE)
[2017-02-22 07:07] LABS: PROBE CHECK PASS
[2017-02-22 10:40] LABS: INFLUENZA A VIRAL ANTIGEN NEGATIVE; INFLUENZA B VIRAL ANTIGEN NEGATIVE
[2017-02-22 11:04] LABS: HEMATOCRIT 30.3 % (36.0-46.0); MCH 28.7 PG (29.0-34.0); MCHC 31.4 G/DL (30.0-36.0); MCV 91.5 FL (83-99); MEAN PLAT.VOLUME 10.9 uM^3 (9.5-12.4); PLATELET COUNT 223 K/uL (156-360); RBC DIS.WIDTH-CV 15.5 % (11.8-14.6); RBC DIS.WIDTH-SD 51.6 % (39-53); RED BLOOD COUNT 3.31 M/uL (3.80-5.20); WHITE BLOOD COUNT 6.4 K/uL (4.1-10.2)
[2017-02-22 11:30] LABS: ANION GAP 15 MEQ/L (2-14); CHLORIDE 94 MEQ/L (99-109); GFR ESTIMATE (CALCULATED) 35 mL/min/; GLUCOSE 256 mg/dL (70-99); POTASSIUM 4.1 MEQ/L (3.7-5.4); SAMPLE HEMOLYSIS CHECK 0; SAMPLE ICTERIC CHECK 0; SAMPLE LIPEMIA CHECK 0; SODIUM 137 MEQ/L (136-147); UREA NITROGEN (BUN) 38 mg/dL (9-23)
[2017-02-22 18:17] LABS: ADD MIUA? YES; BILIRUBIN NEGATIVE; BLOOD MODERATE; COLOR AMBER ((YELLOW)); GLUCOSE (STRIP) NEGATIVE; KETONES 5; LEUKOCYTES MODERATE; NITRITE NEGATIVE; PROTEIN (STRIP) 30; SPECIFIC GRAVITY 1.011 (1.000-1.030); UROBILINOGEN 0.2 MG/DL (0.2-1.0)
[2017-02-22 18:28] LABS: BACTERIA 3+ /HPF; EPITHELIAL CELLS 1+ /HPF; HYALINE CASTS 20-30 /LPF; MUCUS TRACE /LPF; RED BLOOD CELLS TNTC /HPF (0-5); UCUL ADDED? YES; WHITE BLOOD CELLS TNTC /HPF (0-5); WHITE BLOOD CELLS CLUMP MANY /HPF (0-5)
[2017-02-23] VITALS (10 sets, daily range): BP systolic 128–151; BP diastolic 54–69
[2017-02-23 07:56] LABS: INTERNAL CONTROL VALID? YES
[2017-02-23 08:03] LABS: EOSINOPHIL (%) 1.4 % (0-5); EOSINOPHIL COUNT 0.1 K/uL (0-0.3); HEMATOCRIT 30.4 % (36.0-46.0); IMMATURE GRANULOCYTE (%) 0.4 % (0.0-0.7); INSTRUMENT ABS NEUTROPHIL CT 2.8 K/uL; LYMPHOCYTE COUNT 1.6 K/uL (1.0-2.8); MCH 29.1 PG (29.0-34.0); MCHC 31.9 G/DL (30.0-36.0); MCV 91.3 FL (83-99); MEAN PLAT.VOLUME 10.8 uM^3 (9.5-12.4); MONOCYTE (%) 6.5 % (3-12); MONOCYTE COUNT 0.3 K/uL (0-0.8); NEUTROPHIL (%) 57.4 % (45-76); NEUTROPHIL COUNT 2.8 K/uL (1.8-6.4); PLATELET COUNT 209 K/uL (156-360); RBC DIS.WIDTH-SD 49.9 % (39-53); RED BLOOD COUNT 3.33 M/uL (3.80-5.20); WHITE BLOOD COUNT 4.9 K/uL (4.1-10.2)
[2017-02-23 08:33] LABS: ANION GAP 12 MEQ/L (2-14); CHLORIDE 96 MEQ/L (99-109); GFR ESTIMATE (CALCULATED) 41 mL/min/; GLUCOSE 197 mg/dL (70-99); SAMPLE HEMOLYSIS CHECK 0; SAMPLE ICTERIC CHECK 0; SAMPLE LIPEMIA CHECK 0; SODIUM 136 MEQ/L (136-147); UREA NITROGEN (BUN) 35 mg/dL (9-23)
[2017-02-23 12:21] LABS: POINT-OF-CARE METER ID UU14174217
[2017-02-23 18:07] LABS: POINT-OF-CARE METER ID UU14162636
[2017-02-24] VITALS (7 sets, daily range): BP systolic 105–164; BP diastolic 50–89
[2017-02-24 06:05] LABS: EOSINOPHIL (%) 0.4 % (0-5); HEMATOCRIT 31.9 % (36.0-46.0); IMMATURE GRANULOCYTE (%) 0.4 % (0.0-0.7); INSTRUMENT ABS NEUTROPHIL CT 3.4 K/uL; LYMPHOCYTE COUNT 1.4 K/uL (1.0-2.8); MCH 29.4 PG (29.0-34.0); MCV 91.9 FL (83-99); MEAN PLAT.VOLUME 10.9 uM^3 (9.5-12.4); MONOCYTE (%) 6.8 % (3-12); MONOCYTE COUNT 0.4 K/uL (0-0.8); NEUTROPHIL (%) 65.7 % (45-76); NEUTROPHIL COUNT 3.4 K/uL (1.8-6.4); PLATELET COUNT 222 K/uL (156-360); RBC DIS.WIDTH-SD 50.3 % (39-53); RED BLOOD COUNT 3.47 M/uL (3.80-5.20); WHITE BLOOD COUNT 5.2 K/uL (4.1-10.2)
[2017-02-24 06:31] LABS: ANION GAP 8 MEQ/L (2-14); CHLORIDE 95 MEQ/L (99-109); GFR ESTIMATE (CALCULATED) 41 mL/min/; GLUCOSE 284 mg/dL (70-99); POTASSIUM 4.3 MEQ/L (3.7-5.4); SAMPLE HEMOLYSIS CHECK 0; SAMPLE ICTERIC CHECK 0; SAMPLE LIPEMIA CHECK 0; SODIUM 134 MEQ/L (136-147); UREA NITROGEN (BUN) 33 mg/dL (9-23)
[2017-02-24 12:07] LABS: POINT-OF-CARE METER ID UU14174217
[2017-02-24 18:21] LABS: POINT-OF-CARE USER ID 606021424
[2017-02-24 22:27] LABS: POINT-OF-CARE USER ID PHATLC
[2017-02-25] VITALS (10 sets, daily range): BP systolic 0–198; BP diastolic 0–98
[2017-02-25 06:00] LABS: EOSINOPHIL (%) 0.6 % (0-5); HEMATOCRIT 31.9 % (36.0-46.0); IMMATURE GRANULOCYTE (%) 0.5 % (0.0-0.7); INSTRUMENT ABS NEUTROPHIL CT 4.2 K/uL; LYMPHOCYTE COUNT 1.5 K/uL (1.0-2.8); MCH 28.8 PG (29.0-34.0); MCHC 31.3 G/DL (30.0-36.0); MCV 91.9 FL (83-99); MEAN PLAT.VOLUME 11.1 uM^3 (9.5-12.4); MONOCYTE (%) 6.7 % (3-12); MONOCYTE COUNT 0.4 K/uL (0-0.8); NEUTROPHIL (%) 67.2 % (45-76); NEUTROPHIL COUNT 4.2 K/uL (1.8-6.4); PLATELET COUNT 217 K/uL (156-360); RBC DIS.WIDTH-CV 15.1 % (11.8-14.6); RBC DIS.WIDTH-SD 50.6 % (39-53); RED BLOOD COUNT 3.47 M/uL (3.80-5.20); WHITE BLOOD COUNT 6.3 K/uL (4.1-10.2)
[2017-02-25 06:26] LABS: ANION GAP 11 MEQ/L (2-14); CHLORIDE 96 MEQ/L (99-109); GFR ESTIMATE (CALCULATED) 49 mL/min/; GLUCOSE 234 mg/dL (70-99); POTASSIUM 4.1 MEQ/L (3.7-5.4); SAMPLE HEMOLYSIS CHECK 0; SAMPLE ICTERIC CHECK 0; SAMPLE LIPEMIA CHECK 0; SODIUM 133 MEQ/L (136-147); UREA NITROGEN (BUN) 28 mg/dL (9-23)
[2017-02-26] VITALS (10 sets, daily range): BP systolic 125–159; BP diastolic 50–70
[2017-02-26 05:25] LABS: BASOPHIL COUNT 0.1 K/uL (0-0.1); EOSINOPHIL (%) 2.9 % (0-5); EOSINOPHIL COUNT 0.2 K/uL (0-0.3); HEMATOCRIT 31.3 % (36.0-46.0); IMMATURE GRANULOCYTE (%) 0.6 % (0.0-0.7); IMMATURE GRANULOCYTE COUNT 0.1 K/uL; INSTRUMENT ABS NEUTROPHIL CT 4.1 K/uL; LYMPHOCYTE COUNT 2.7 K/uL (1.0-2.8); MCH 28.6 PG (29.0-34.0); MCV 92.3 FL (83-99); MEAN PLAT.VOLUME 10.7 uM^3 (9.5-12.4); MONOCYTE (%) 7.7 % (3-12); MONOCYTE COUNT 0.6 K/uL (0-0.8); NEUTROPHIL (%) 53.6 % (45-76); NEUTROPHIL COUNT 4.1 K/uL (1.8-6.4); PLATELET COUNT 200 K/uL (156-360); RBC DIS.WIDTH-SD 50.3 % (39-53); RED BLOOD COUNT 3.39 M/uL (3.80-5.20); WHITE BLOOD COUNT 7.7 K/uL (4.1-10.2)
[2017-02-26 05:59] LABS: ANION GAP 9 MEQ/L (2-14); CHLORIDE 102 MEQ/L (99-109); GFR ESTIMATE (CALCULATED) 49 mL/min/; GLUCOSE 132 mg/dL (70-99); POTASSIUM 4.2 MEQ/L (3.7-5.4); SAMPLE HEMOLYSIS CHECK 0; SAMPLE ICTERIC CHECK 0; SAMPLE LIPEMIA CHECK 0; SODIUM 137 MEQ/L (136-147); UREA NITROGEN (BUN) 28 mg/dL (9-23)
[2017-02-26 16:28] LABS: POINT-OF-CARE METER ID UU13113803
[2017-02-26 22:21] LABS: POINT-OF-CARE METER ID UU13113803
[2017-02-27] VITALS (9 sets, daily range): BP systolic 124–162; BP diastolic 47–70
[2017-02-27 01:35] LABS: C DIFF TOXIN NEGATIVE (NEGATIVE)
[2017-02-27 01:38] LABS: PROBE CHECK PASS; SPECIMEN PROCESSING CONTROL PASS
[2017-02-27 09:12] LABS: POINT-OF-CARE METER ID UU14162636
[2017-02-27 12:53] LABS: POINT-OF-CARE METER ID UU14162636
[2017-02-27 17:36] LABS: POINT-OF-CARE METER ID UU14162636
[2017-02-27 20:30] LABS: TROP-I INTERPRETATION NEGATIVE; TROPONIN-I 0.01 ng/mL (0.0-0.30)
[2017-02-27 21:55] LABS: POINT-OF-CARE METER ID UU13113803
[2017-02-28] VITALS (9 sets, daily range): BP systolic 105–150; BP diastolic 45–79
[2017-02-28 02:11] LABS: TROP-I INTERPRETATION NEGATIVE; TROPONIN-I < 0.01 ng/mL (0.0-0.30)
[2017-02-28 08:17] LABS: EOSINOPHIL (%) 2.4 % (0-5); EOSINOPHIL COUNT 0.2 K/uL (0-0.3); IMMATURE GRANULOCYTE (%) 0.7 % (0.0-0.7); IMMATURE GRANULOCYTE COUNT 0.1 K/uL; INSTRUMENT ABS NEUTROPHIL CT 5.5 K/uL; LYMPHOCYTE COUNT 2.3 K/uL (1.0-2.8); MCH 29.3 PG (29.0-34.0); MCHC 30.9 G/DL (30.0-36.0); MCV 94.8 FL (83-99); MEAN PLAT.VOLUME 10.8 uM^3 (9.5-12.4); MONOCYTE (%) 6.4 % (3-12); MONOCYTE COUNT 0.6 K/uL (0-0.8); NEUTROPHIL (%) 63.2 % (45-76); NEUTROPHIL COUNT 5.5 K/uL (1.8-6.4); PLATELET COUNT 222 K/uL (156-360); RBC DIS.WIDTH-SD 51.9 % (39-53); RED BLOOD COUNT 3.48 M/uL (3.80-5.20); WHITE BLOOD COUNT 8.7 K/uL (4.1-10.2)
[2017-02-28 08:34] LABS: ANION GAP 9 MEQ/L (2-14); CHLORIDE 103 MEQ/L (99-109); POTASSIUM 4.4 MEQ/L (3.7-5.4); SAMPLE HEMOLYSIS CHECK 0; SAMPLE ICTERIC CHECK 0; SAMPLE LIPEMIA CHECK 0; SODIUM 133 MEQ/L (136-147)
[2017-02-28 08:40] LABS: GFR ESTIMATE (CALCULATED) 45 mL/min/; UREA NITROGEN (BUN) 28 mg/dL (9-23)
[2017-02-28 08:41] LABS: GLUCOSE 215 mg/dL (70-99)
[2017-02-28 09:22] LABS: TROP-I INTERPRETATION NEGATIVE; TROPONIN-I < 0.01 ng/mL (0.0-0.30)
[2017-02-28 12:38] LABS: POINT-OF-CARE METER ID UU13113731
[2017-02-28 17:49] LABS: POINT-OF-CARE METER ID UU13113731
[2017-02-28 21:42] LABS: POINT-OF-CARE METER ID UU13113731
[2017-03-01] VITALS: BP 122/54
[2017-03-01 04:00] VITALS: BP 141/64
[2017-03-01 06:12] LABS: ANION GAP 9 MEQ/L (2-14); CHLORIDE 101 MEQ/L (99-109); GFR ESTIMATE (CALCULATED) 41 mL/min/; GLUCOSE 252 mg/dL (70-99); POTASSIUM 4.9 MEQ/L (3.7-5.4); SAMPLE HEMOLYSIS CHECK 0; SAMPLE ICTERIC CHECK 0; SAMPLE LIPEMIA CHECK 0; SODIUM 134 MEQ/L (136-147); UREA NITROGEN (BUN) 33 mg/dL (9-23)
[2017-03-01 06:18] LABS: HEMATOCRIT 35.2 % (36.0-46.0); MCH 29.2 PG (29.0-34.0); MCHC 30.7 G/DL (30.0-36.0); MCV 95.1 FL (83-99); MEAN PLAT.VOLUME 10.9 uM^3 (9.5-12.4); PLATELET COUNT 256 K/uL (156-360); RBC DIS.WIDTH-SD 52.4 % (39-53)
[2017-03-01 06:27] LABS: WHITE BLOOD COUNT 13.5 K/uL (4.1-10.2)
[2017-03-01 10:00] VITALS: BP 122/45
[2017-03-01 11:48] LABS: POINT-OF-CARE METER ID UU14162636; POINT-OF-CARE USER ID 606021424
[2017-03-01 12:00] VITALS: BP 112/64
[2017-03-01 16:00] VITALS: BP 143/63
[2017-03-01 18:29] LABS: POINT-OF-CARE METER ID UU14174217
[2017-03-01 20:00] VITALS: BP 119/65
[2017-03-01 21:40] LABS: POINT-OF-CARE METER ID UU14174217
[2017-03-02] VITALS (7 sets, daily range): BP systolic 117–152; BP diastolic 53–80
[2017-03-02 05:43] LABS: HEMATOCRIT 30.9 % (36.0-46.0); MCH 29.4 PG (29.0-34.0); MCHC 31.4 G/DL (30.0-36.0); MCV 93.6 FL (83-99); MEAN PLAT.VOLUME 10.8 uM^3 (9.5-12.4); PLATELET COUNT 210 K/uL (156-360); RBC DIS.WIDTH-CV 14.7 % (11.8-14.6); RBC DIS.WIDTH-SD 50.4 % (39-53)
[2017-03-02 05:44] LABS: WHITE BLOOD COUNT 7.4 K/uL (4.1-10.2)
[2017-03-02 06:04] LABS: ANION GAP 7 MEQ/L (2-14); CHLORIDE 103 MEQ/L (99-109); GFR ESTIMATE (CALCULATED) 54 mL/min/; GLUCOSE 213 mg/dL (70-99); POTASSIUM 5.1 MEQ/L (3.7-5.4); SAMPLE HEMOLYSIS CHECK 0; SAMPLE ICTERIC CHECK 0; SAMPLE LIPEMIA CHECK 0; SODIUM 133 MEQ/L (136-147); UREA NITROGEN (BUN) 37 mg/dL (9-23)
[2017-03-02 12:55] LABS: POINT-OF-CARE METER ID UU14162636
[2017-03-02 17:37] LABS: POINT-OF-CARE METER ID UU14162636; POINT-OF-CARE USER ID 606021424
[2017-03-02 22:52] LABS: POINT-OF-CARE METER ID UU14162636
[2017-03-03] VITALS (7 sets, daily range): BP systolic 113–166; BP diastolic 44–74
[2017-03-03 05:52] LABS: HEMATOCRIT 33.7 % (36.0-46.0); MCH 29.2 PG (29.0-34.0); MCHC 31.2 G/DL (30.0-36.0); MCV 93.6 FL (83-99); MEAN PLAT.VOLUME 10.8 uM^3 (9.5-12.4); PLATELET COUNT 255 K/uL (156-360); RBC DIS.WIDTH-CV 14.7 % (11.8-14.6); RBC DIS.WIDTH-SD 50.6 % (39-53)
[2017-03-03 05:54] LABS: WHITE BLOOD COUNT 16.6 K/uL (4.1-10.2)
[2017-03-03 06:11] LABS: ANION GAP 9 MEQ/L (2-14); CHLORIDE 101 MEQ/L (99-109); GFR ESTIMATE (CALCULATED) 54 mL/min/; POTASSIUM 4.7 MEQ/L (3.7-5.4); SAMPLE HEMOLYSIS CHECK 0; SAMPLE ICTERIC CHECK 0; SAMPLE LIPEMIA CHECK 0; SODIUM 133 MEQ/L (136-147); UREA NITROGEN (BUN) 38 mg/dL (9-23)
[2017-03-03 06:12] LABS: GLUCOSE 84 mg/dL (70-99)
[2017-03-03 17:22] LABS: POINT-OF-CARE METER ID UU14162636
[2017-03-03 22:47] LABS: POINT-OF-CARE USER ID AGYTJR
[2017-03-04] VITALS (7 sets, daily range): BP systolic 122–149; BP diastolic 44–58
[2017-03-04 06:17] LABS: HEMATOCRIT 27.5 % (36.0-46.0); MCH 29.6 PG (29.0-34.0); MCHC 31.6 G/DL (30.0-36.0); MCV 93.5 FL (83-99); PLATELET COUNT 203 K/uL (156-360); RBC DIS.WIDTH-CV 14.8 % (11.8-14.6); RBC DIS.WIDTH-SD 50.7 % (39-53); RED BLOOD COUNT 2.94 M/uL (3.80-5.20)
[2017-03-04 06:24] LABS: WHITE BLOOD COUNT 8.9 K/uL (4.1-10.2)
[2017-03-04 06:32] LABS: ANION GAP 5 MEQ/L (2-14); CHLORIDE 102 MEQ/L (99-109); GFR ESTIMATE (CALCULATED) 49 mL/min/; POTASSIUM 4.4 MEQ/L (3.7-5.4); SAMPLE HEMOLYSIS CHECK 0; SAMPLE ICTERIC CHECK 0; SAMPLE LIPEMIA CHECK 0; SODIUM 132 MEQ/L (136-147); UREA NITROGEN (BUN) 41 mg/dL (9-23)
[2017-03-04 06:33] LABS: GLUCOSE 119 mg/dL (70-99)
[2017-03-04 12:08] LABS: POINT-OF-CARE USER ID 606021424
[2017-03-04 21:39] LABS: POINT-OF-CARE USER ID AGYTJR
[2017-03-05] VITALS (10 sets, daily range): BP systolic 115–143; BP diastolic 43–107
[2017-03-05 06:20] LABS: HEMATOCRIT 28.9 % (36.0-46.0); MCH 29.2 PG (29.0-34.0); MCHC 30.8 G/DL (30.0-36.0); MCV 94.8 FL (83-99); MEAN PLAT.VOLUME 11.2 uM^3 (9.5-12.4); PLATELET COUNT 216 K/uL (156-360); RBC DIS.WIDTH-CV 14.9 % (11.8-14.6); RBC DIS.WIDTH-SD 51.8 % (39-53); RED BLOOD COUNT 3.05 M/uL (3.80-5.20); WHITE BLOOD COUNT 7.8 K/uL (4.1-10.2)
[2017-03-05 06:40] LABS: ANION GAP 8 MEQ/L (2-14); CHLORIDE 103 MEQ/L (99-109); POTASSIUM 5.1 MEQ/L (3.7-5.4); SAMPLE HEMOLYSIS CHECK 0; SAMPLE ICTERIC CHECK 0; SAMPLE LIPEMIA CHECK 0; SODIUM 134 MEQ/L (136-147)
[2017-03-05 06:46] LABS: GFR ESTIMATE (CALCULATED) 49 mL/min/; UREA NITROGEN (BUN) 43 mg/dL (9-23)
[2017-03-05 06:47] LABS: GLUCOSE 183 mg/dL (70-99)
[2017-03-05 12:19] LABS: POINT-OF-CARE METER ID UU13113803
[2017-03-06] VITALS (8 sets, daily range): BP systolic 102–170; BP diastolic 35–75
[2017-03-06 06:34] LABS: BASOPHIL COUNT 0.1 K/uL (0-0.1); EOSINOPHIL COUNT 0.3 K/uL (0-0.3); HEMATOCRIT 31.3 % (36.0-46.0); IMMATURE GRANULOCYTE (%) 0.6 % (0.0-0.7); IMMATURE GRANULOCYTE COUNT 0.1 K/uL; INSTRUMENT ABS NEUTROPHIL CT 4.5 K/uL; LYMPHOCYTE COUNT 3.1 K/uL (1.0-2.8); MCH 29.6 PG (29.0-34.0); MCV 95.4 FL (83-99); MEAN PLAT.VOLUME 10.6 uM^3 (9.5-12.4); MONOCYTE (%) 7.5 % (3-12); MONOCYTE COUNT 0.6 K/uL (0-0.8); NEUTROPHIL (%) 52.3 % (45-76); NEUTROPHIL COUNT 4.5 K/uL (1.8-6.4); PLATELET COUNT 238 K/uL (156-360); RBC DIS.WIDTH-CV 14.7 % (11.8-14.6); RBC DIS.WIDTH-SD 50.9 % (39-53); RED BLOOD COUNT 3.28 M/uL (3.80-5.20); WHITE BLOOD COUNT 8.6 K/uL (4.1-10.2)
[2017-03-06 06:38] LABS: Estimated Average Glucose 128 mg/dL (70-123); HEMOGLOBIN A1c (GLYCOHEMOGLOB) 6.1 % HGB (Below 5.7)
[2017-03-06 06:58] LABS: ALKALINE PHOSPHATASE 111 IU/L (3-129); ANION GAP 8 MEQ/L (2-14); CHLORIDE 103 MEQ/L (99-109); GFR ESTIMATE (CALCULATED) 45 mL/min/; GLUCOSE 124 mg/dL (70-99); MAGNESIUM 1.8 mg/dl (1.3-2.7); POTASSIUM 4.9 MEQ/L (3.7-5.4); SAMPLE HEMOLYSIS CHECK 0; SAMPLE ICTERIC CHECK 0; SAMPLE LIPEMIA CHECK 0; SODIUM 136 MEQ/L (136-147); TOTAL BILIRUBIN 0.4 MG/DL (0.0-1.0); UREA NITROGEN (BUN) 43 mg/dL (9-23)
[2017-03-06 09:02] LABS: POINT-OF-CARE METER ID UU14174217
[2017-03-06 13:58] LABS: POINT-OF-CARE METER ID UU13113731
[2017-03-06 18:02] LABS: POINT-OF-CARE METER ID UU14174217
[2017-03-06 21:45] LABS: POINT-OF-CARE METER ID UU14174217
[2017-03-07] VITALS (7 sets, daily range): BP systolic 116–146; BP diastolic 46–66
[2017-03-07 04:57] LABS: EOSINOPHIL (%) 2.3 % (0-5); EOSINOPHIL COUNT 0.2 K/uL (0-0.3); HEMATOCRIT 31.5 % (36.0-46.0); IMMATURE GRANULOCYTE (%) 0.4 % (0.0-0.7); INSTRUMENT ABS NEUTROPHIL CT 3.5 K/uL; LYMPHOCYTE COUNT 2.7 K/uL (1.0-2.8); MCH 29.5 PG (29.0-34.0); MCHC 31.7 G/DL (30.0-36.0); MCV 92.9 FL (83-99); MEAN PLAT.VOLUME 10.4 uM^3 (9.5-12.4); MONOCYTE (%) 7.6 % (3-12); MONOCYTE COUNT 0.5 K/uL (0-0.8); NEUTROPHIL (%) 50.6 % (45-76); NEUTROPHIL COUNT 3.5 K/uL (1.8-6.4); PLATELET COUNT 266 K/uL (156-360); RBC DIS.WIDTH-CV 14.7 % (11.8-14.6); RBC DIS.WIDTH-SD 50.2 % (39-53); RED BLOOD COUNT 3.39 M/uL (3.80-5.20)
[2017-03-07 05:11] LABS: CHLORIDE 101 mEq/L (99-109); POTASSIUM 4.8 mEq/L (3.7-5.4); SODIUM 135 mEq/L (136-147)
[2017-03-07 05:14] LABS: ANION GAP 6 MEQ/L (2-14)
[2017-03-07 05:15] LABS: TOTAL BILIRUBIN 0.4 mg/dL (0.0-1.0)
[2017-03-07 05:17] LABS: ALKALINE PHOSPHATASE 119 IU/L (3-129); GFR ESTIMATE (CALCULATED) 45 mL/min/
[2017-03-07 05:18] LABS: UREA NITROGEN (BUN) 41 mg/dL (9-23)
[2017-03-07 05:22] LABS: GLUCOSE 206 mg/dL (70-99)
[2017-03-08] VITALS (8 sets, daily range): BP systolic 120–152; BP diastolic 50–59
[2017-03-08 06:19] LABS: ALKALINE PHOSPHATASE 120 IU/L (3-129); ANION GAP 6 MEQ/L (2-14); CHLORIDE 100 MEQ/L (99-109); GFR ESTIMATE (CALCULATED) 45 mL/min/; GLUCOSE 238 mg/dL (70-99); POTASSIUM 4.7 MEQ/L (3.7-5.4); SAMPLE HEMOLYSIS CHECK 0; SAMPLE ICTERIC CHECK 0; SAMPLE LIPEMIA CHECK 0; SODIUM 135 MEQ/L (136-147); TOTAL BILIRUBIN 0.4 MG/DL (0.0-1.0); UREA NITROGEN (BUN) 44 mg/dL (9-23)
[2017-03-08 06:29] LABS: BASOPHIL COUNT 0.1 K/uL (0-0.1); EOSINOPHIL (%) 1.6 % (0-5); EOSINOPHIL COUNT 0.2 K/uL (0-0.3); HEMATOCRIT 30.1 % (36.0-46.0); IMMATURE GRANULOCYTE (%) 0.6 % (0.0-0.7); IMMATURE GRANULOCYTE COUNT 0.1 K/uL; LYMPHOCYTE COUNT 2.5 K/uL (1.0-2.8); MCH 30.3 PG (29.0-34.0); MCHC 32.6 G/DL (30.0-36.0); MCV 93.2 FL (83-99); MEAN PLAT.VOLUME 10.7 uM^3 (9.5-12.4); MONOCYTE (%) 5.2 % (3-12); MONOCYTE COUNT 0.5 K/uL (0-0.8); PLATELET COUNT 248 K/uL (156-360); RBC DIS.WIDTH-CV 14.6 % (11.8-14.6); RBC DIS.WIDTH-SD 49.9 % (39-53); RED BLOOD COUNT 3.23 M/uL (3.80-5.20)
[2017-03-08 06:36] LABS: WHITE BLOOD COUNT 10.3 K/uL (4.1-10.2)
[2017-03-08 08:01] LABS: POINT-OF-CARE METER ID UU14162636
[2017-03-08 12:11] LABS: POINT-OF-CARE METER ID UU13113803
[2017-03-08 17:52] LABS: POINT-OF-CARE METER ID UU13113803
[2017-03-08 20:46] LABS: POINT-OF-CARE METER ID UU13113803; POINT-OF-CARE USER ID AGYTJR
[2017-03-09] VITALS (8 sets, daily range): BP systolic 118–157; BP diastolic 39–56
[2017-03-09 06:52] LABS: ALKALINE PHOSPHATASE 122 IU/L (3-129); ANION GAP 7 MEQ/L (2-14); CHLORIDE 99 MEQ/L (99-109); GFR ESTIMATE (CALCULATED) 54 mL/min/; GLUCOSE 257 mg/dL (70-99); POTASSIUM 4.6 MEQ/L (3.7-5.4); SAMPLE HEMOLYSIS CHECK 0; SAMPLE ICTERIC CHECK 0; SAMPLE LIPEMIA CHECK 0; SODIUM 134 MEQ/L (136-147); TOTAL BILIRUBIN 0.3 MG/DL (0.0-1.0); UREA NITROGEN (BUN) 45 mg/dL (9-23)
[2017-03-09 06:54] LABS: EOSINOPHIL (%) 2.6 % (0-5); EOSINOPHIL COUNT 0.2 K/uL (0-0.3); HEMATOCRIT 30.6 % (36.0-46.0); IMMATURE GRANULOCYTE (%) 0.6 % (0.0-0.7); INSTRUMENT ABS NEUTROPHIL CT 3.4 K/uL; LYMPHOCYTE COUNT 2.5 K/uL (1.0-2.8); MCH 29.5 PG (29.0-34.0); MCHC 31.7 G/DL (30.0-36.0); MEAN PLAT.VOLUME 10.6 uM^3 (9.5-12.4); MONOCYTE (%) 6.1 % (3-12); MONOCYTE COUNT 0.4 K/uL (0-0.8); NEUTROPHIL (%) 51.4 % (45-76); NEUTROPHIL COUNT 3.4 K/uL (1.8-6.4); PLATELET COUNT 222 K/uL (156-360); RBC DIS.WIDTH-CV 14.6 % (11.8-14.6); RED BLOOD COUNT 3.29 M/uL (3.80-5.20)
[2017-03-09 06:58] LABS: WHITE BLOOD COUNT 6.6 K/uL (4.1-10.2)
[2017-03-10] VITALS (7 sets, daily range): BP systolic 112–141; BP diastolic 46–62
[2017-03-10 02:19] LABS: POINT-OF-CARE METER ID UU13113803
[2017-03-10 06:50] LABS: BASOPHIL COUNT 0.1 K/uL (0-0.1); EOSINOPHIL (%) 3.3 % (0-5); EOSINOPHIL COUNT 0.2 K/uL (0-0.3); HEMATOCRIT 30.3 % (36.0-46.0); IMMATURE GRANULOCYTE (%) 0.7 % (0.0-0.7); IMMATURE GRANULOCYTE COUNT 0.1 K/uL; LYMPHOCYTE COUNT 2.6 K/uL (1.0-2.8); MCH 30.1 PG (29.0-34.0); MCV 94.1 FL (83-99); MEAN PLAT.VOLUME 10.6 uM^3 (9.5-12.4); MONOCYTE (%) 5.2 % (3-12); MONOCYTE COUNT 0.4 K/uL (0-0.8); NEUTROPHIL (%) 53.9 % (45-76); PLATELET COUNT 215 K/uL (156-360); RBC DIS.WIDTH-CV 14.6 % (11.8-14.6); RBC DIS.WIDTH-SD 51.1 % (39-53); RED BLOOD COUNT 3.22 M/uL (3.80-5.20); WHITE BLOOD COUNT 7.3 K/uL (4.1-10.2)
[2017-03-10 07:12] LABS: ALKALINE PHOSPHATASE 116 IU/L (3-129); ANION GAP 8 MEQ/L (2-14); CHLORIDE 100 MEQ/L (99-109); GFR ESTIMATE (CALCULATED) 54 mL/min/; GLUCOSE 192 mg/dL (70-99); POTASSIUM 4.5 MEQ/L (3.7-5.4); SAMPLE HEMOLYSIS CHECK 0; SAMPLE ICTERIC CHECK 0; SAMPLE LIPEMIA CHECK 0; SODIUM 137 MEQ/L (136-147); TOTAL BILIRUBIN 0.3 MG/DL (0.0-1.0); UREA NITROGEN (BUN) 45 mg/dL (9-23)
[2017-03-10 11:12] LABS: POINT-OF-CARE METER ID UU13113803
[2017-03-10 17:36] LABS: POINT-OF-CARE METER ID UU14174217
[2017-03-11] VITALS (7 sets, daily range): BP systolic 107–150; BP diastolic 34–58
[2017-03-11 00:19] LABS: POINT-OF-CARE METER ID UU14174217
[2017-03-11 10:06] LABS: ANION GAP 8 MEQ/L (2-14); CHLORIDE 100 MEQ/L (99-109); GFR ESTIMATE (CALCULATED) 45 mL/min/; POTASSIUM 4.6 MEQ/L (3.7-5.4); SAMPLE HEMOLYSIS CHECK 0; SAMPLE ICTERIC CHECK 0; SAMPLE LIPEMIA CHECK 0; SODIUM 136 MEQ/L (136-147); UREA NITROGEN (BUN) 52 mg/dL (9-23)
[2017-03-11 10:25] LABS: GLUCOSE 95 mg/dL (70-99)
[2017-03-11 10:28] LABS: HEMATOCRIT 31.5 % (36.0-46.0); MCH 29.5 PG (29.0-34.0); MCHC 31.4 G/DL (30.0-36.0); MCV 93.8 FL (83-99); MEAN PLAT.VOLUME 10.6 uM^3 (9.5-12.4); PLATELET COUNT 226 K/uL (156-360); RBC DIS.WIDTH-CV 14.9 % (11.8-14.6); RBC DIS.WIDTH-SD 51.5 % (39-53); RED BLOOD COUNT 3.36 M/uL (3.80-5.20); WHITE BLOOD COUNT 8.1 K/uL (4.1-10.2)
[2017-03-11 21:32] LABS: POINT-OF-CARE METER ID UU13113731
[2017-03-12] VITALS: BP 123/50
[2017-03-12 04:00] VITALS: BP 122/49
[2017-03-12 05:27] LABS: EOSINOPHIL (%) 2.3 % (0-5); EOSINOPHIL COUNT 0.1 K/uL (0-0.3); HEMATOCRIT 30.8 % (36.0-46.0); IMMATURE GRANULOCYTE (%) 0.5 % (0.0-0.7); INSTRUMENT ABS NEUTROPHIL CT 3.1 K/uL; LYMPHOCYTE COUNT 2.4 K/uL (1.0-2.8); MCH 29.5 PG (29.0-34.0); MCHC 31.5 G/DL (30.0-36.0); MCV 93.6 FL (83-99); MEAN PLAT.VOLUME 10.3 uM^3 (9.5-12.4); MONOCYTE (%) 6.4 % (3-12); MONOCYTE COUNT 0.4 K/uL (0-0.8); NEUTROPHIL (%) 51.1 % (45-76); NEUTROPHIL COUNT 3.1 K/uL (1.8-6.4); PLATELET COUNT 203 K/uL (156-360); RBC DIS.WIDTH-SD 51.6 % (39-53); RED BLOOD COUNT 3.29 M/uL (3.80-5.20); WHITE BLOOD COUNT 6.1 K/uL (4.1-10.2)
[2017-03-12 06:32] LABS: ALKALINE PHOSPHATASE 145 IU/L (3-129); ANION GAP 8 MEQ/L (2-14); CHLORIDE 99 MEQ/L (99-109); GFR ESTIMATE (CALCULATED) 38 mL/min/; GLUCOSE 256 mg/dL (70-99); POTASSIUM 4.7 MEQ/L (3.7-5.4); SAMPLE HEMOLYSIS CHECK 0; SAMPLE ICTERIC CHECK 0; SAMPLE LIPEMIA CHECK 0; SODIUM 135 MEQ/L (136-147); TOTAL BILIRUBIN 0.3 MG/DL (0.0-1.0); UREA NITROGEN (BUN) 52 mg/dL (9-23)
[2017-03-12 07:00] VITALS: BP 122/49
[2017-03-12 08:00] VITALS: BP 111/24
[2017-03-12] MEDS ORDERED: DUONEB 2.5-0.5 M3 ML AEROSOL (10:22)
[2017-03-12] MEDS ORDERED: CLOPIDOGREL75 MG PO (10:23)
[2017-03-12] MEDS ORDERED: ACETAMINOPHEN325 M1 PO (10:24)
[2017-03-12] MEDS ORDERED: ESCITALOPRAM OX20 MG GT (10:25)
[2017-03-12] MEDS ORDERED: LIDOCAINE700 MG TD (10:28)
[2017-03-12] MEDS ORDERED: OXYCONTIN10 MG PO (10:29)
[2017-03-12] MEDS ORDERED: CLONAZEPAM1 MG GT (10:29)
[2017-03-12] MEDS ORDERED: PERCOCET 5/31 TABLET PO (10:29)
[2017-03-12 12:00] VITALS: BP 119/55
[2017-03-12 12:06] LABS: POINT-OF-CARE METER ID UU13113731
[2017-03-12 13:30] VITALS: BP 130/68
== END 2017-03-12 13:23 | DRG 207 ==
LOC: EME 20:45 → 4WEST 02-22 02:59 → EDOF 02-22 02:59 → 4WEST 02-22 05:12
PROVIDERS: Emergency Medicine; Hospitalist; Internal Medicine; Nurse Practitioner Family
PROC: 5A1955Z Respiratory Ventilation, Greater than 96 Consecutive Hours (ICD-10-PCS; principal; 2017-02-21)
DX: J96.21 Acute and chronic respiratory failure with hypoxia (principal); J95.851 Ventilator associated pneumonia; I13.0 Hypertensive heart and chronic kidney disease with heart failure and stage 1 through stage 4 chronic kidney disease, or unspecified chronic kidney disease; I50.33 Acute on chronic diastolic (congestive) heart failure; Y95 Nosocomial condition; N18.4 Chronic kidney disease, stage 4 (severe); N17.9 Acute kidney failure, unspecified; G89.4 Chronic pain syndrome; R10.9 Unspecified abdominal pain; R07.89 Other chest pain; D63.1 Anemia in chronic kidney disease; E10.22 Type 1 diabetes mellitus with diabetic chronic kidney disease; E78.5 Hyperlipidemia, unspecified; E03.9 Hypothyroidism, unspecified; I08.1 Rheumatic disorders of both mitral and tricuspid valves; I27.2 Other secondary pulmonary hypertension; I25.10 Atherosclerotic heart disease of native coronary artery without angina pectoris; F32.9 Major depressive disorder, single episode, unspecified; F41.9 Anxiety disorder, unspecified; E66.01 Morbid (severe) obesity due to excess calories; Z22.39 Carrier of other specified bacterial diseases; Z68.41 Body mass index [BMI] 40.0-44.9, adult; Z99.11 Dependence on respirator [ventilator] status; Z93.0 Tracheostomy status; Z93.1 Gastrostomy status; Z86.14 Personal history of Methicillin resistant Staphylococcus aureus infection; Z79.4 Long term (current) use of insulin; Z87.891 Personal history of nicotine dependence; Z75.1 Person awaiting admission to adequate facility elsewhere
CPT/HCPCS: 36600; 71010; 74176; 80048; 80053; 80202; 81003; 82565; 82803; 82948; 83036; 83605; 83690; 83735; 84100; 84484; 85025; 85027; 86900; 86901; 87040; 87070; 87077; 87081; 87086; 87181; 87186; 87205; 87449; 87493; 87502; 87641; 92526 GN; 92610 GN; 93005; 93306; 94002; 94003; 94640; 94640 76; 94668; 94760; 94799; 97530 GO; 97530 GP; 99202; 99281; 99285; J0456; J0692; J1644; J1815; J1940; J2060; J2270; J2405; J3370; J7050; J7512